=== PATIENT | male | born 1975 | race Two or more races ===

== ENCOUNTER 2021-09-29 23:17 | Inpatient (IN) | payer MEDICAID, OTHER ==
[~2021-09-29] VITALS: Ht 30.5 cm; Wt 79.4 kg
[2021-09-30 00:03] LABS: Basophils # (auto) 0 10 ^3/uL (0-0.2); Basophils % (auto) 0.5 % (0.0-2.0); Eosinophils # (auto) 0.1 10 ^3/uL (0-0.8); Eosinophils % (auto) 2.3 % (0.0-7.0); Hematocrit 38.7 % (41.0-53.0); Hemoglobin 12.9 g/dL (13.5-17.5); Lymphocytes # (auto) 1.8 10 ^3/uL (0.4-5.4); Lymphocytes % (auto) 29.1 % (10.0-50.0); Mean Corpuscular Hemoglobin 27.9 pg (28.0-32.0); Mean Corpuscular Hgb Conc. 33.4 g/dL (32.0-36.0); Mean Corpuscular Volume 83.7 fL (80.0-100.0); Monocytes # (auto) 0.6 10 ^3/uL (0-1.3); Monocytes % (auto) 9.6 % (0.0-12.0); Neutrophils # (auto) 3.7 10 ^3/uL (1.6-8.6); Neutrophils % (auto) 58.5 % (37.0-80.0); Nucleated Red Blood Cells % 0.1 %; Red Blood Cells 4.63 10^6/uL (4.5-5.90); Red Cell Distribution Width 13.8 % (11.8-14.3); White Blood Cell 6.3 10^3/uL (4.4-10.8)
[2021-09-30 00:23] LABS: Alanine Aminotransferase 19 U/L (16-61); Albumin 3.4 g/dL (3.4-5.0); Anion Gap 5 (5-15); Aspartate Aminotransferase 16 U/L (15-37); BUN/Creatinine Ratio 11.7; Blood Alcohol < 3.0 mg/dL (0-5); Blood Urea Nitrogen 12 mg/dL (7-18); Carbon Dioxide 28 mmol/L (21-32); Chloride 103 mmol/L (98-107); GFR African American 100 mL/min; GFR Non-African American 83 mL/min; Glucose 90 mg/dL (74-106); Potassium 3.7 mmol/L (3.5-5.1); Sodium 136 mmol/L (136-145)
[2021-09-30 00:26] LABS: Alkaline Phosphatase 108 U/L (45-117); Bilirubin, Total 0.5 mg/dL (0.2-1.0); Salicylate < 1.7 mg/dL (2.8-20.0); Total Protein 8.1 g/dL (6.4-8.2)
[2021-09-30 01:00] LABS: Acetaminophen < 2.0 ug/mL (10-30)
[2021-09-30] MEDS ORDERED: NALOXONE HCL 1MG/ML 2ML SYRINGE IV ONE ×2 (01:30→04:30)
[2021-09-30 01:56] LABS: Urine Bacteria NONE SEEN /hpf (None Seen); Urine Blood Negative /uL (Negative); Urine Specific Gravity 1.007 (1.001-1.035); Urine WBC <1 /hpf (0 - 3)
[2021-09-30 01:59] LABS: Alcohol, Urine < 3.0 mg/dL (0-10); Amphetamine Screen, Urine POSITIVE (NEGATIVE); Barbiturate Scree,Urine NEGATIVE (NEGATIVE); Benzodiazephine Screen, Urine NEGATIVE (NEGATIVE); Cannabinoid Screen, Urine POSITIVE (NEGATIVE); Cocaine Screen, Urine NEGATIVE (NEGATIVE); Opiate Scree,Urine NEGATIVE (NEGATIVE); Phencyclidine Screen, Urine NEGATIVE (NEGATIVE)
[2021-09-30] MEDS ORDERED: SODIUM CHLORIDE 0.9% 1,000 ML IV ONE (04:00)
[2021-09-30] MEDS ORDERED: SODIUM CHLORIDE 0.9% 1,000 ML IV SCH (04:15)
[2021-09-30] MEDS ORDERED: ONDANSETRON HCL 4 MG/2 ML VIAL IV PRN (04:15)
[2021-09-30] MEDS ORDERED: ACETAMINOPHEN 325 MG TAB PO PRN (04:15)
[2021-09-30 08:33] LABS: INR 0.99 (0.9-1.15)
[2021-09-30] MEDS ORDERED: PANTOPRAZOLE 40 MG TAB PO SCH (10:00)
[2021-09-30 16:50] VITALS: BP 150/90
== END 2021-09-30 16:50 | disposition home or self-care (01) | DRG 52 ==
LOC: ER 23:17 → OVERFLOW 09-30 04:11
PROVIDERS: ADMIT Nurse Practitioner; ATTEND Internal Medicine
DX: G92.9 Unspecified toxic encephalopathy (principal); F19.10 Other psychoactive substance abuse, uncomplicated; Z20.822 Contact with and (suspected) exposure to COVID-19; G93.0 Cerebral cysts
CPT/HCPCS: 36415; 70450; 71045; 80053; 80307; 80320; 80329; 81001; 83605; 84484; 85025; 85610; 87426; 93005; 96361; 96374; 96375; G0378

== ENCOUNTER 2025-10-25 22:41 | Emergency (ER) | payer OTHER ==
[~2025-10-25] VITALS: Ht 182.9 cm; Wt 86.3 kg
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
[2025-10-26] MEDS ORDERED: IBUP1TAB5 PO (00:16)
[2025-10-26] MEDS ORDERED: ACET-1881 PO (00:16)
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
[2025-10-26] MEDS: ACETAMINOPHEN 500 MG TAB or CAP PO ONE (01:00)
[2025-10-26] MEDS: KETOROLAC TROMETH 60MG/2ML VIAL IM ONE (01:01)
[2025-10-26 01:05] VITALS: BP 130/84; PULSE 71; RESP 16; TEMP 99; O2SAT 100
== END 2025-10-26 01:07 | disposition home or self-care (01) ==
LOC: ER 22:41
DX: S80.211A Abrasion, right knee, initial encounter (principal); S80.811A Abrasion, right lower leg, initial encounter; M25.511 Pain in right shoulder; M25.551 Pain in right hip; M25.571 Pain in right ankle and joints of right foot; Z79.899 Other long term (current) drug therapy; V89.2XXA Person injured in unspecified motor-vehicle accident, traffic, initial encounter; Y93.55 Activity, bike riding; Y92.488 Other paved roadways as the place of occurrence of the external cause; Y99.8 Other external cause status
CPT/HCPCS: 73030; 73502; 73562; 96372; 99284; J1885